=== PATIENT | male | born 1975 | race Caucasian/White ===

== ENCOUNTER 2016-10-06 15:08 | Inpatient (IN) | payer OTHER ==
[2016-10-06 16:07] VITALS: BMI 22.4
--- NOTE | 2016-10-06 18:39 | HP ---
COWS - Scale Resting Pulse: 1= [place] 81-100 Sweatin= Chills/Flushing Restless Observation: 1= Difficult to Sit Still Pupil Size: 0= Normal to Room Light Bone or Joint Aches: 2= Severe Diffuse Aches Runny Nose/ Eye Tearin= Runny Nose/Eyes GI Upset > 30mins: 2= Nausea/Diarrhea Tremor Observation: 2= Slight Tremor Visible Yawning Observation: 1= 1-2x During Session Anxiety or Irritability: 2=Irritable/Anxious Goose Flesh Skin: 0=Smooth Skin COWS Score: 14 Admission [facility] - [facility] Chief Complaint: withdrawal sx Allergies/Adverse Reactions: Allergies Allergy/AdvReac Type Severity Reaction Status Date / Time No Known Allergies Allergy Verified 10/06/16 17:54 History of Present Illness: 41 years old male with long history of cocaine nicotine opiate dependence has hepatitis c treated, asthma, positive ppd and open heart surgery 05/2016 "valve replacement" and bipolar ii is admitted to detox Exam Limitations: No Limitations - Ebola screening Have you traveled outside of the country in the last 21 days: No Have you had contact with anyone from an Ebola affected area: No Have you been sick,other than usual withdrawal symptoms: No Do you have a fever: No - Review of Systems Constitutional: Loss of Appetite, Changes in sleep, Unintentional Wgt. Loss, Unexplained wgt Loss EENT: reports: Blurred Vision (reading eye glasses) Respiratory: reports: SOB with Exertion Cardiac: reports: No Symptoms Reported GI: reports: Nausea, Poor Appetite, Poor Fluid Intake, Abdominal cramping : reports: No Symptoms Reported Musculoskeletal: reports: Back Pain (x 10+ years) Integumentary: reports: Change in Color (both inner elbows) Neuro: reports: Tremors Endocrine: reports: No Symptoms Reported Hematology: reports: Blood Clots (had cardiac valve replacement 05/2016 unable to remember the name of the medication) Psychiatric: reports: Judgement Intact, Orientated x3, Anxious, Depressed Other Systems: Reviewed and Negative Patient History - Patient Medical History Hx Anemia: No Hx Asthma: Yes Hx Chronic Obstructive Pulmonary Disease (COPD): No Hx Cancer: No Hx Cardiac Disorders: Yes (05/2016 valve replacement) Hx Congestive Heart Failure: No Hx Hypertension: No Hx Hypercholesterolemia: No Hx Pacemaker: No HX Cerebrovascular Accident: No Hx Seizures: No Hx Dementia: No Hx Diabetes: No Hx Gastrointestinal Disorders: No Hx Liver Disease: No Hx Genitourinary Disorders: No Hx Sexually Transmitted Disorders: No Hx Renal Disease (ESRD): No Hx Thyroid Disease: No Hx Human Immunodeficiency Virus (HIV): No Hx Hepatitis C: Yes Hx Depression: No Hx Suicide Attempt: No Hx Bipolar Disorder: Yes Hx Schizophrenia: No - Patient Surgical History Past Surgical History: Yes Hx Neurologic Surgery: No Hx Cataract Extraction: No Hx Cardiac Surgery: Yes (04/2016) Hx Lung Surgery: No Hx Breast Surgery: No Hx Breast Biopsy: No Hx Abdominal Surgery: No Hx Appendectomy: No Hx Cholecystectomy: No Hx Genitourinary Surgery: No Hx Orthopedic Surgery: No Anesthesia Reaction: No - PPD History Previous Implant?: No Documented Results: Positive w/o proof Implanted On Prior R Admission?: No PPD to be Administered?: No - Smoking Cessation Smoking history: Current every day smoker Have you smoked in the past 12 months: No Aproximately how many cigarettes per day: 10 Hx Chewing Tobacco Use: No Initiated information on smoking cessation: Yes 'Breaking Loose' booklet given: 10/06/16 - Substance & Tx. History Hx Substance Use: No Substance Use Type: Cocaine, Opiates Hx Substance Use Treatment: Yes (2015) - Substances Abused Heroin Route: Injection Frequency: Daily Amount used: 4 bags Age of first use: 16 Date of Last Use: 10/06/16 Cocaine Route: Injection Frequency: Daily Amount used: 4 bags Age of first use: 16 Date of Last Use: 10/06/16 Family Disease History - Family Disease History Family Disease History: Diabetes: Sister, [place]: Father, Other: Father, Mother ( /kidney) Admission Physical Exam S - Vital Signs Vital Signs: Vital Signs - 24 hr 10/06/16 16:06 Temperature 96.3 F L Pulse Rate 93 H Respiratory 20 Rate Blood Pressure 87/59 - Physical General Appearance: Yes: Appropriately Dressed, Mild Distress, Thin, Tremorous, Irritable, Sweating, Anxious HEENTM: Yes: Hearing grossly Normal, Normal ENT Inspection, Normocephalic, Normal Voice Respiratory: Yes: Chest Non-Tender, No Respiratory Distress, No Accessory Muscle Use Neck: Yes: Supple, Trachea in good position Breast: Yes: Breasts Symetrical Cardiology: Yes: Regular Rhythm, S1, S2, Tachycardia Abdominal: Yes: Non Tender, Soft, Increased Bowel Sounds Genitourinary: Yes: Within Normal Limits Back: Yes: Normal Inspection Musculoskeletal: Yes: full range of Motion, Gait Steady, Back pain, Joint swelling (feet) Extremities: Yes: Normal Range of Motion (f), Non-Tender, Tremors Neurological: Yes: Fully Oriented, Alert, Motor Strength 5/5, Normal Response, Depressed Affect Integumentary: Yes: Warm, Track [place] Lymphatic: Yes: Within Normal Limits - Diagnostic (1) Opioid dependence with withdrawal Current Visit: Yes Status: Acute (2) Cocaine dependence, uncomplicated Current Visit: Yes Status: Chronic (3) Nicotine dependence Current Visit: Yes Status: Acute Qualifiers: Nicotine product type: cigarettes Substance use status: in withdrawal Qualified Code(s): F17.213 - Nicotine dependence, cigarettes, with withdrawal (4) Asthma Current Visit: Yes Status: Chronic Qualifiers: Asthma severity: mild persistent (5) Positive PPD, treated Current Visit: Yes Status: Resolved (6) Hepatitis C Current Visit: Yes Status: Resolved Qualifiers: Viral hepatitis chronicity: carrier Qualified Code(s): B18.2 - Chronic viral hepatitis C (7) Swollen feet Current Visit: Yes Status: Chronic Comment: elevation of feet (8) Weight loss Current Visit: Yes Status: Acute (9) Heart valve replaced Current Visit: Yes Status: Resolved Comment: wait for primary pharmacy e sent list of medications (10) Bipolar II disorder Current Visit: Yes Status: Suspected Cleared for Admission [facility] - Detox or Rehab [facility] Level of Care: Medically Managed Detox Regimen/Protocol: Methadone [facility] Breath Alcohol Content Breath Alcohol Content: 0 Urine Drug Screen - Results Drug Screen Negative: No Urine Drug Screen Results: ANNO-Cocaine, OPI-Opiates
[2016-10-06] MEDS ORDERED: diphenhydrAMINE HCL 50 MG CAPSULE PO PRN (18:50)
[2016-10-06] MEDS ORDERED: NICOTINE POLACRILEX 2 MG GUM BC PRN (18:50)
[2016-10-06] MEDS ORDERED: MAGNESIUM CITRATE 300 ML BOTTLE PO PRN (18:50)
[2016-10-06] MEDS ORDERED: LOPERAMIDE HCL 2 MG CAPSULE PO PRN (18:50)
[2016-10-06] MEDS ORDERED: P-EPHED 60MG/TRIPROLIDI 2.5MG TABLET PO PRN (18:50)
[2016-10-06] MEDS ORDERED: guaiFENesin/D-METHORPHAN HB 10 ML UNIT-DOSE CUPS PO PRN (18:50)
[2016-10-06] MEDS ORDERED: MENTHOL/PHENOL 1 EACH UD MM PRN (18:50)
[2016-10-06] MEDS ORDERED: MAGNESIUM HYDROX 2400MG/30ML ORAL SUSPENSION 30 ML CUP PO PRN (18:50)
[2016-10-06] MEDS ORDERED: METHADONE HCL 10 MG TABLET (FOR DETOX USE ONLY) PO ONE ×2 (18:50→23:00)
[2016-10-06] MEDS ORDERED: MAG HYDROX/AL HYDROX/SIMETH 30 ML UNIT-DOSE CUP PO PRN (18:50)
[2016-10-06] MEDS ORDERED: ALBUTEROL SO4 2.5/IPRATROPIUM 0.5 INH SOL 3 ML VIAL.NEB. NEB PRN (18:54)
[2016-10-06] MEDS ORDERED: ALBUTEROL SO4 6.7 GM HFA INHALER IH PRN (18:54)
[2016-10-06] MEDS: diazePAM 5 MG TABLET PO PRN (20:05)
[2016-10-06] MEDS: ACETAMINOPHEN 325 MG TABLET (FP) PO PRN (20:11)
[2016-10-06 20:59] LABS: URINE APPEARANCE CLEAR; URINE BILIRUBIN NEGATIVE (NEGATIVE); URINE BLOOD 1+ (NEGATIVE); URINE COLOR YELLOW; URINE GLUCOSE (UA) NEGATIVE (NEGATIVE); URINE KETONE NEGATIVE (NEGATIVE); URINE LEUK ESTERASE NEGATIVE (NEGATIVE); URINE NITRITE NEGATIVE (NEGATIVE); URINE PROTEIN NEGATIVE (NEGATIVE); URINE UROBILINOGEN 4.0 E.U/dl mg/dL (0.2-1.0)
[2016-10-06 21:20] LABS: URINE RBC 5 /hpf (0-3); URINE WBC 5 /hpf (3-5)
[2016-10-06] MEDS: THIAMINE HCL 100 MG TABLET (FP) PO SCH (22:32)
[2016-10-06] MEDS: LIDOCAINE PATCH REMOVAL MC SCH (22:32)
[2016-10-07] MEDS ORDERED: METHADONE HCL 10 MG TABLET (FOR DETOX USE ONLY) PO ONE (10:00)
[2016-10-07 10:13] LABS: MCH 22.9 pg (25.7-33.7); MCHC 31.6 g/dl (32.0-35.9); MEAN CELL VOLUME 72.5 fl (80-96); MEAN PLT VOLUME 9.6 fl (7.5-11.1); PLATELET COUNT 49 K/MM3 (134-434); RDW 18.6 % (11.9-15.9); WHITE BLOOD COUNT 10.6 K/mm3 (4.0-10.0)
[2016-10-07 10:21] LABS: INR 1.43 (0.82-1.09); PROTHROMBIN TIME (PATIENT) 15.9 SEC (9.98-11.88)
[2016-10-07] MEDS: PRENATAL VITAMINS W/ FOLIC ACID TABLET (FP) PO SCH (10:48)
[2016-10-07] MEDS: LIDOCAINE 5% TOPICAL PATCH TP SCH (10:49)
[2016-10-07] MEDS: NICOTINE 14 MG/24 HOURS TOPICAL PATCH TD SCH (10:49)
[2016-10-07 10:53] LABS: ALBUMIN 2.1 g/dl (3.4-5.0); ALK PHOS 156 U/L (45-117); ANION GAP 8 (8-16); BILIRUBIN,TOTAL 0.8 mg/dL (0.2-1.0); CO2 27 mmol/L (21-32); CREATININE 0.8 mg/dL (0.7-1.3); GLUCOSE,RANDOM 84 mg/dL (74-106); SGOT/AST 19 U/L (15-37); SGPT/ALT 14 U/L (12-78); TOT PROT 7.1 g/dl (6.4-8.2)
--- NOTE | 2016-10-07 10:53 | PN ---
S COWS - Scale Resting Pulse: 1= [place] 81-100 Sweatin= Chills/Flushing Restless Observation: 1= Difficult to Sit Still Pupil Size: 1= Pupils >than Normal Bone or Joint Aches: 1= Mild Discomfort Runny Nose/ Eye Tearin= Nasal Congestion GI Upset > 30mins: 2= Nausea/Diarrhea Tremor Observation of Outstretched Hands: 1= Tremor [place], Not Seen Yawning Observation: 1= 1-2x During Session Anxiety or Irritability: 2=Irritable/Anxious Goose Flesh Skin: 3=Piloerection COWS Score: 15 S Progress Note (SOAP) Subjective: nausea, sweats, interrupted sleep, anxiety, tremors Objective: 10/07/16 10:53 Vital Signs - 24 hr 10/06/16 10/06/16 10/07/16 16:06 22:21 00:34 Temperature 96.3 F L 97.6 F Pulse Rate 93 H 90 Respiratory 20 18 18 Rate Blood Pressure 87/59 107/78 10/07/16 10/07/16 10/07/16 03:26 06:34 10:06 Temperature 98.6 F Pulse Rate 86 Respiratory 18 18 18 Rate Blood Pressure 113/81 Laboratory Tests 10/06/16 10/07/16 10/07/16 20:47 07:00 07:00 WBC 10.6 H RBC 4.69 Hgb 10.7 L Hct 34.0 L MCV 72.5 L MCH 22.9 L MCHC 31.6 L RDW 18.6 H Plt Count 49 L MPV 9.6 Sodium 140 Potassium 3.9 Chloride 105 Urine Color Yellow Urine Appearance Clear Urine pH 6.0 Ur Specific [place] 1.025 Urine Protein Negative Urine Glucose (UA) Negative Urine Ketones Negative Urine Blood 1+ H Urine Nitrite Negative Urine Bilirubin Negative Urine Urobilinogen 4.0 e.u/dl Ur Leukocyte Esterase Negative Urine RBC 5 Urine WBC 5 Ur Epithelial Cells Rare Assessment: 10/07/16 10:53 withdrawal sx, anemia, abnormal u/a Plan: cont detox, repeat u/a, iron supplements
--- NOTE | 2016-10-07 11:48 | CONSULT ---
[facility] Psychiatric Consult - Data Date of interview: 10/07/16 Admission source: [facility] Identifying data: First admission to [facility] for this 41 y/o male seeking detox treatment for heroin and cocaine dependence.Patient is single,a father of two,domiciled,unemployed and supported on SSI benefits. Substance Abuse History: Confirmed by patient. Smoking Cessation. Smoking history: Current every day smoker. Have you smoked in the past 12 months: No. Aproximately how many cigarettes per day: 10. Hx Chewing Tobacco Use: No. Initiated information on smoking cessation: Yes. 'Breaking Loose' booklet given : 10/06/16. - Substance & Tx. History. Hx Substance Use: No. Substance Use Type: Cocaine, Opiates. Hx Substance Use Treatment: Yes (2015). - Substances Abused. Heroin. Route: Injection. Frequency: Daily. Amount used: 4 bags. Age of first use: 16. Date of Last Use: 10/06/16. Cocaine. Route: Injection. Frequency: Daily. Amount used: 4 bags. Age of first use: 16. Date of Last Use: 10/06/16 Medical History: Hepatitis C,history of positive PPD and bronchial asthma.Noted history of recent open heart surgery for valve replacement (May 2016). Psychiatric History: Patient is a diificult historian to follow due to disorganization and inconsistencies.Mr Stroud denies history of psychiatric hospitalizations.Admits to an antecedent of OPD care at [facility] in the [place].Used to see Dr Demarco for management of anxiety.Dropped out of follow up eight months ago.Now purchases xanax from street vendors.No reported history of suicide attempts. Physical/Sexual Abuse/Trauma History: No information. Additional Comment: Urine Drug Screen Results: NANO-Cocaine, OPI-Opiates.Noted. Mental Status Exam - Mental Status Exam Alert and Oriented to: Place, Person Cognitive Function: Impaired Patient Appearance: Unkempt, Disheveled Mood: Withdrawn, Anxious Affect: Mood Congruent Patient Behavior: Sedated (moderately), Fatigued, Cooperative Speech Pattern: Delayed, Slurred Voice Loudness: Normal Thought Process: Disorganized Thought Disorder: Not Present Hallucinations: Denies Suicidal Ideation: Denies Homicidal Ideation: Denies Insight/Judgement: Poor Sleep: Well Appetite: Good Muscle strength/Tone: Normal Gait/Station: Normal Psychiatric Findings - Problem List ([place] 1, 2,3) (1) Opioid dependence with withdrawal Current Visit: Yes Status: Acute (2) Cocaine dependence, uncomplicated Current Visit: Yes Status: Acute (3) Nicotine dependence Current Visit: Yes Status: Acute Qualifiers: Nicotine product type: cigarettes Substance use status: in withdrawal Qualified Code(s): F17.213 - Nicotine dependence, cigarettes, with withdrawal (4) Substance induced mood disorder Current Visit: Yes Status: Acute (5) Asthma Current Visit: Yes Status: Chronic Qualifiers: Asthma severity: mild persistent (6) Heart valve replaced Current Visit: Yes Status: Resolved Comment: wait for primary pharmacy e sent list of medications (7) Hepatitis C Current Visit: Yes Status: Resolved Qualifiers: Viral hepatitis chronicity: carrier Qualified Code(s): B18.2 - Chronic viral hepatitis C (8) Positive PPD, treated Current Visit: Yes Status: Resolved - Initial Treatment Plan Initial Treatment Plan: Psychoeducation.Detoxification.Observation.
[2016-10-07] MEDS: diazePAM 5 MG TABLET PO PRN ×2 (12:50→20:23)
[2016-10-07] MEDS: FERROUS SO4 325 MG TABLET (FP) PO SCH ×2 (12:50→17:28)
[2016-10-07] MEDS: ACETAMINOPHEN 325 MG TABLET (FP) PO PRN (20:21)
[2016-10-07] MEDS: THIAMINE HCL 100 MG TABLET (FP) PO SCH (22:48)
[2016-10-07] MEDS: LIDOCAINE PATCH REMOVAL MC SCH (22:49)
[2016-10-08] MEDS ORDERED: ONDANSETRON 8 MG TABLET (FP) PO PRN (00:13)
[2016-10-08] MEDS ORDERED: ONDANSETRON *ODT* 4 MG TABLET SL PRN (00:32)
[2016-10-08] MEDS: FERROUS SO4 325 MG TABLET (FP) PO SCH ×3 (07:58→17:08)
[2016-10-08] MEDS: diazePAM 5 MG TABLET PO PRN ×3 (07:58→22:33)
[2016-10-08] MEDS ORDERED: METHADONE HCL 5 MG TABLET (FOR DETOX USE ONLY) PO ONE (10:00)
[2016-10-08] MEDS: PRENATAL VITAMINS W/ FOLIC ACID TABLET (FP) PO SCH (11:03)
[2016-10-08] MEDS: LIDOCAINE 5% TOPICAL PATCH TP SCH (11:03)
[2016-10-08] MEDS: NICOTINE 14 MG/24 HOURS TOPICAL PATCH TD SCH (11:04)
--- NOTE | 2016-10-08 13:08 | PN ---
[facility] COWS - Scale Resting Pulse: 2= [place] 101-120 Sweatin= Chills/Flushing Restless Observation: 1= Difficult to Sit Still Pupil Size: 0= Normal to Room Light Bone or Joint Aches: 0= None Runny Nose/ Eye Tearin= Runny Nose/Eyes GI Upset > 30mins: 3= Vomiting/Diarrhea Tremor Observation of Outstretched Hands: 2= Slight Tremor Visible Yawning Observation: 1= 1-2x During Session Anxiety or Irritability: 2=Irritable/Anxious Goose Flesh Skin: 0=Smooth Skin COWS Score: 14 S Progress Note (SOAP) Subjective: Vomiting, Tremors, Fatigue, Interrupted sleep. Objective: PT. A & O X 1 (DISORIENTED ABOUT DAY/DATE AND ABOUT CURRENT LOCATION). NO ACUTE DISTRESS. 10/08/16 13:06 Vital Signs Temperature 102.2 F H 10/07/16 21:59 Pulse Rate 112 H 10/07/16 21:59 Respiratory Rate 16 10/08/16 06:30 Blood Pressure 93/66 10/07/16 21:59 O2 Sat by Pulse Oximetry (%) Laboratory Tests 10/06/16 10/07/16 10/07/16 20:47 07:00 07:00 WBC 10.6 H RBC 4.69 Hgb 10.7 L Hct 34.0 L MCV 72.5 L MCH 22.9 L MCHC 31.6 L RDW 18.6 H Plt Count 49 L MPV 9.6 INR 1.43 H Sodium Potassium Chloride Carbon Dioxide Anion Gap BUN Creatinine Creat Clearance w eGFR Random Glucose Calcium Total Bilirubin AST ALT Alkaline Phosphatase Total Protein Albumin Urine Color Yellow Urine Appearance Clear Urine pH 6.0 Ur Specific [place] 1.025 Urine Protein Negative Urine Glucose (UA) Negative Urine Ketones Negative Urine Blood 1+ H Urine Nitrite Negative Urine Bilirubin Negative Urine Urobilinogen 4.0 e.u/dl Ur Leukocyte Esterase Negative Urine RBC 5 Urine WBC 5 Ur Epithelial Cells Rare RPR Titer 10/07/16 10/07/16 07:00 07:00 WBC RBC Hgb Hct MCV MCH MCHC RDW Plt Count MPV INR Sodium 140 Potassium 3.9 Chloride 105 Carbon Dioxide 27 Anion Gap 8 BUN 16 Creatinine 0.8 Creat Clearance w eGFR > 60 Random Glucose 84 Calcium 8.0 L Total Bilirubin 0.8 AST 19 ALT 14 Alkaline Phosphatase 156 H Total Protein 7.1 Albumin 2.1 L Urine Color Urine Appearance Urine pH Ur Specific [place] Urine Protein Urine Glucose (UA) Urine Ketones Urine Blood Urine Nitrite Urine Bilirubin Urine Urobilinogen Ur Leukocyte Esterase Urine RBC Urine WBC Ur Epithelial Cells RPR Titer Nonreactive LABS NOTED. Assessment: 10/08/16 13:07 WITHDRAWAL SYMPTOMS. Plan: CONTINUE DETOX. PRN ZOFRAN SL FOR NAUSEA / VOMITING. NEW MEDS. ORDERED BASED ON INFORMATION PROVIDED FROM PATIENT'S HOME PHARMACY ( [facility], [place] ): CLOPIDOGREL, 75 MG PO DAILY, ASA, 81 MG PO DAILY, SENNA 1 TAB PO BID, COLACE 100 MG PO BID. REPEAT UA FOR ABNORMAL ADMISSION VALUES.
[2016-10-08] MEDS: CLOPIDOGREL BISULFATE 75 MG TABLET (FP) PO SCH (17:08)
[2016-10-08] MEDS: ASPIRIN 81 MG CHEWABLE TABLETS PO SCH (17:08)
[2016-10-08] MEDS: ACETAMINOPHEN 325 MG TABLET (FP) PO PRN (22:32)
[2016-10-08] MEDS: SENNOSIDES 8.6MG TABLET (FP) PO SCH (22:33)
[2016-10-08] MEDS: DOCUSATE SODIUM 100 MG CAPSULE (FP) PO SCH (22:33)
[2016-10-08] MEDS: LIDOCAINE PATCH REMOVAL MC SCH (22:34)
[2016-10-08] MEDS: THIAMINE HCL 100 MG TABLET (FP) PO SCH (22:34)
[2016-10-09] MEDS ORDERED: CLINDAMYCIN HCL 300 MG CAPSULE PO SCH
[2016-10-09] MEDS: CLINDAMYCIN HCL 150 MG CAPSULE (FP) PO SCH ×4 (07:59→23:01)
[2016-10-09] MEDS: FERROUS SO4 325 MG TABLET (FP) PO SCH ×3 (07:59→19:18)
[2016-10-09] MEDS ORDERED: METHADONE HCL 5 MG TABLET (FOR DETOX USE ONLY) PO ONE (10:00)
[2016-10-09] MEDS: ASPIRIN 81 MG CHEWABLE TABLETS PO SCH (11:00)
[2016-10-09] MEDS: SENNOSIDES 8.6MG TABLET (FP) PO SCH ×2 (11:00→22:37)
[2016-10-09] MEDS: DOCUSATE SODIUM 100 MG CAPSULE (FP) PO SCH ×2 (11:00→22:38)
[2016-10-09] MEDS: CLOPIDOGREL BISULFATE 75 MG TABLET (FP) PO SCH (11:00)
[2016-10-09] MEDS: LIDOCAINE 5% TOPICAL PATCH TP SCH (11:00)
[2016-10-09] MEDS: NICOTINE 14 MG/24 HOURS TOPICAL PATCH TD SCH (11:01)
[2016-10-09] MEDS: PRENATAL VITAMINS W/ FOLIC ACID TABLET (FP) PO SCH (11:01)
[2016-10-09] MEDS: diazePAM 5 MG TABLET PO PRN (11:02)
--- NOTE | 2016-10-09 11:38 | EKG ---
Test Reason : Blood Pressure : / mmHG Vent. Rate : 083 BPM Atrial Rate : 083 BPM P-R Int : 136 ms QRS Dur : 066 ms QT Int : 400 ms P-R-T Axes : 070 064 035 degrees QTc Int : 470 ms NORMAL SINUS RHYTHM NORMAL ECG NO PREVIOUS ECGS AVAILABLE Confirmed by NIKOLAS MONTAGUE MD ([id number]) on 10/09/2016 11:37:54 AM Referred By: Dimas Huerta Confirmed By:NIKOLAS MONTAGUE MD
--- NOTE | 2016-10-09 11:46 | PN ---
[facility] Progress Note (SOAP) Subjective: Anxious, Fatigue, Vomiting. Objective: PT. A & O X 2 (DISORIENTED ABOUT DAY / DATE). PT. OBSERVED AMBULATING ON UNIT. NO ACUTE DISTRESS. PT. DENIES CHEST PAIN. 10/09/16 11:43 Vital Signs Temperature 97.3 F L 10/09/16 09:42 Pulse Rate 88 10/09/16 09:42 Respiratory Rate 18 10/09/16 09:42 Blood Pressure 128/93 10/09/16 09:42 O2 Sat by Pulse Oximetry (%) Laboratory Tests 10/06/16 10/07/16 10/07/16 20:47 07:00 07:00 WBC 10.6 H RBC 4.69 Hgb 10.7 L Hct 34.0 L MCV 72.5 L MCH 22.9 L MCHC 31.6 L RDW 18.6 H Plt Count 49 L MPV 9.6 INR 1.43 H Sodium Potassium Chloride Carbon Dioxide Anion Gap BUN Creatinine Creat Clearance w eGFR Random Glucose Calcium Total Bilirubin AST ALT Alkaline Phosphatase Total Protein Albumin Urine Color Yellow Urine Appearance Clear Urine pH 6.0 Ur Specific [place] 1.025 Urine Protein Negative Urine Glucose (UA) Negative Urine Ketones Negative Urine Blood 1+ H Urine Nitrite Negative Urine Bilirubin Negative Urine Urobilinogen 4.0 e.u/dl Ur Leukocyte Esterase Negative Urine RBC 5 Urine WBC 5 Ur Epithelial Cells Rare RPR Titer 10/07/16 10/07/16 07:00 07:00 WBC RBC Hgb Hct MCV MCH MCHC RDW Plt Count MPV INR Sodium 140 Potassium 3.9 Chloride 105 Carbon Dioxide 27 Anion Gap 8 BUN 16 Creatinine 0.8 Creat Clearance w eGFR > 60 Random Glucose 84 Calcium 8.0 L Total Bilirubin 0.8 AST 19 ALT 14 Alkaline Phosphatase 156 H Total Protein 7.1 Albumin 2.1 L Urine Color Urine Appearance Urine pH Ur Specific [place] Urine Protein Urine Glucose (UA) Urine Ketones Urine Blood Urine Nitrite Urine Bilirubin Urine Urobilinogen Ur Leukocyte Esterase Urine RBC Urine WBC Ur Epithelial Cells RPR Titer Nonreactive LABS NOTED. Assessment: 10/09/16 11:44 WITHDRAWAL SYMPTOMS. Plan: CONTINUE DETOX. REPEAT UA AND CBC FOR ABNORMAL ADMISSION VALUES.
[2016-10-09 16:11] LABS: URINE APPEARANCE CLEAR; URINE BILIRUBIN NEGATIVE (NEGATIVE); URINE BLOOD NEGATIVE (NEGATIVE); URINE COLOR AMBER; URINE GLUCOSE (UA) NEGATIVE (NEGATIVE); URINE KETONE NEGATIVE (NEGATIVE); URINE LEUK ESTERASE NEGATIVE (NEGATIVE); URINE NITRITE NEGATIVE (NEGATIVE); URINE PROTEIN NEGATIVE (NEGATIVE); URINE UROBILINOGEN 4.0 E.U/dl mg/dL (0.2-1.0)
[2016-10-09] MEDS: THIAMINE HCL 100 MG TABLET (FP) PO SCH (22:37)
[2016-10-09] MEDS: LIDOCAINE PATCH REMOVAL MC SCH (22:38)
[2016-10-10] MEDS: CLINDAMYCIN HCL 150 MG CAPSULE (FP) PO SCH ×4 (06:01→23:32)
[2016-10-10] MEDS: FERROUS SO4 325 MG TABLET (FP) PO SCH ×3 (07:34→18:02)
[2016-10-10] MEDS ORDERED: METHADONE HCL 10 MG TABLET (FOR DETOX USE ONLY) PO ONE (10:00)
[2016-10-10] MEDS ORDERED: ONDANSETRON *ODT* 4 MG TABLET SL PRN (10:12)
[2016-10-10 10:23] LABS: BASOPHIL 0.6 % (0-2.0); EOSINOPHIL 0.2 % (0-4.5); MCH 22.5 pg (25.7-33.7); MCHC 30.6 g/dl (32.0-35.9); MEAN CELL VOLUME 73.5 fl (80-96); MEAN PLT VOLUME 9.7 fl (7.5-11.1); NEUTROPHILS 82.1 % (42.8-82.8); PLATELET COUNT 68 K/MM3 (134-434); RDW 19.5 % (11.9-15.9); WHITE BLOOD COUNT 13.7 K/mm3 (4.0-10.0)
[2016-10-10] MEDS ORDERED: ONDANSETRON *ODT* 4 MG TABLET SL ONE (10:30)
[2016-10-10] MEDS: CLOPIDOGREL BISULFATE 75 MG TABLET (FP) PO SCH (10:41)
[2016-10-10] MEDS: DOCUSATE SODIUM 100 MG CAPSULE (FP) PO SCH (10:41)
[2016-10-10] MEDS: PRENATAL VITAMINS W/ FOLIC ACID TABLET (FP) PO SCH (10:42)
[2016-10-10] MEDS: SENNOSIDES 8.6MG TABLET (FP) PO SCH ×2 (10:42→22:48)
[2016-10-10] MEDS: ASPIRIN 81 MG CHEWABLE TABLETS PO SCH (10:42)
[2016-10-10] MEDS: LIDOCAINE 5% TOPICAL PATCH TP SCH (10:42)
[2016-10-10] MEDS: NICOTINE 14 MG/24 HOURS TOPICAL PATCH TD SCH (10:43)
--- NOTE | 2016-10-10 11:11 | PN ---
BHS Progress Note (SOAP) Subjective: nausea, sweats, interrupted sleep, anxiety, tremors Objective: 10/10/16 11:10 Vital Signs - 8 hr 10/10/16 10/10/16 10/10/16 06:36 07:41 09:42 Temperature 97.7 F 98.6 F Pulse Rate 110 H 93 H 90 Respiratory 16 18 Rate Blood Pressure 86/56 81/52 128/93 Laboratory Tests 10/06/16 10/07/16 10/07/16 20:47 07:00 07:00 WBC 10.6 H RBC 4.69 Hgb 10.7 L Hct 34.0 L MCV 72.5 L MCH 22.9 L MCHC 31.6 L RDW 18.6 H Plt Count 49 L MPV 9.6 Neutrophils % Lymphocytes % Monocytes % Eosinophils % Basophils % INR 1.43 H Sodium Potassium Chloride Carbon Dioxide Anion Gap BUN Creatinine Creat Clearance w eGFR Random Glucose Calcium Total Bilirubin AST ALT Alkaline Phosphatase Total Protein Albumin Urine Color Yellow Urine Appearance Clear Urine pH 6.0 Ur Specific [place] 1.025 Urine Protein Negative Urine Glucose (UA) Negative Urine Ketones Negative Urine Blood 1+ H Urine Nitrite Negative Urine Bilirubin Negative Urine Urobilinogen 4.0 e.u/dl Ur Leukocyte Esterase Negative Urine RBC 5 Urine WBC 5 Ur Epithelial Cells Rare RPR Titer 10/07/16 10/07/16 10/09/16 07:00 07:00 12:00 WBC RBC Hgb Hct MCV MCH MCHC RDW Plt Count MPV Neutrophils % Lymphocytes % Monocytes % Eosinophils % Basophils % INR Sodium 140 Potassium 3.9 Chloride 105 Carbon Dioxide 27 Anion Gap 8 BUN 16 Creatinine 0.8 Creat Clearance w eGFR > 60 Random Glucose 84 Calcium 8.0 L Total Bilirubin 0.8 AST 19 ALT 14 Alkaline Phosphatase 156 H Total Protein 7.1 Albumin 2.1 L Urine Color [place] Urine Appearance Clear Urine pH 7.0 Ur Specific [place] 1.015 Urine Protein Negative Urine Glucose (UA) Negative Urine Ketones Negative Urine Blood Negative Urine Nitrite Negative Urine Bilirubin Negative Urine Urobilinogen 4.0 e.u/dl Ur Leukocyte Esterase Negative Urine RBC Urine WBC Ur Epithelial Cells RPR Titer Nonreactive 10/10/16 07:00 WBC 13.7 H RBC 4.53 Hgb 10.2 L Hct 33.3 L MCV 73.5 L MCH 22.5 L MCHC 30.6 L RDW 19.5 H Plt Count 68 L D MPV 9.7 Neutrophils % 82.1 Lymphocytes % 11.7 Monocytes % 5.4 Eosinophils % 0.2 Basophils % 0.6 INR Sodium Potassium Chloride Carbon Dioxide Anion Gap BUN Creatinine Creat Clearance w eGFR Random Glucose Calcium Total Bilirubin AST ALT Alkaline Phosphatase Total Protein Albumin Urine Color Urine Appearance Urine pH Ur Specific [place] Urine Protein Urine Glucose (UA) Urine Ketones Urine Blood Urine Nitrite Urine Bilirubin Urine Urobilinogen Ur Leukocyte Esterase Urine RBC Urine WBC Ur Epithelial Cells RPR Titer Assessment: 10/10/16 11:11 naga sx, anemia Plan: cont detox, ensuer , ferrous sulphate
[2016-10-10] MEDS: ACETAMINOPHEN 325 MG TABLET (FP) PO PRN (14:20)
[2016-10-10] MEDS ORDERED: DOCUSATE SODIUM 100 MG CAPSULE (FP) PO SCH (22:00)
[2016-10-10] MEDS: THIAMINE HCL 100 MG TABLET (FP) PO SCH (22:47)
[2016-10-10] MEDS: LIDOCAINE PATCH REMOVAL MC SCH (22:54)
[2016-10-11] MEDS: CLINDAMYCIN HCL 150 MG CAPSULE (FP) PO SCH (05:56)
[2016-10-11] MEDS ORDERED: METHADONE HCL 5 MG TABLET (FOR DETOX USE ONLY) PO ONE (06:00)
[2016-10-11 06:36] VITALS: BP 100/69; PULSE 113; TEMP 101.7
[2016-10-11] MEDS: ACETAMINOPHEN 325 MG TABLET (FP) PO PRN (07:33)
[2016-10-11] MEDS: FERROUS SO4 325 MG TABLET (FP) PO SCH (07:33)
[2016-10-11] MEDS: SENNOSIDES 8.6MG TABLET (FP) PO SCH (09:28)
[2016-10-11] MEDS: PRENATAL VITAMINS W/ FOLIC ACID TABLET (FP) PO SCH (09:28)
[2016-10-11] MEDS: ASPIRIN 81 MG CHEWABLE TABLETS PO SCH (09:28)
[2016-10-11] MEDS: CLOPIDOGREL BISULFATE 75 MG TABLET (FP) PO SCH (09:29)
[2016-10-11] MEDS: LIDOCAINE 5% TOPICAL PATCH TP SCH (10:48)
[2016-10-11] MEDS: NICOTINE 14 MG/24 HOURS TOPICAL PATCH TD SCH (10:48)
--- NOTE | 2016-10-11 15:54 | DS ---
[facility] Detox Discharge Summary Admission Date: 10/06/16 Discharge Date: 10/11/16 - History Present History: Cocaine Dependence, Opioid Dependence Additional Comments: PATIENT HAS COMPLETED FULL DETOX MEDICATION REGIMEN. HOWEVER, DUE TO RESULTS OF CXR DONE 10/09/2016, PATIENT'S CURRENT SYMPTOMATOLOGY, CURRENT VS (INCLUDING ELEVATED TEMP.), AND RESULTS OF LABS DRAWN WHILE PATIENT ADMITTED FOR DETOX, PATIENT STRONGLY ADVISED TO GO TO [facility] [place] FOR FURTHER EVALUATION AT TIME OF DISCHARGE FROM DETOX. HOWEVER, PATIENT DECLINES TO DO SO, STATING INSTEAD THAT HE PREFERS TO GO TO MEDICAL DEPARTMENT AT [facility] ([place], [place] WHERE HE HAD A HEART VALVE REPLACED IN 2013. PATIENT REPORTS TAHT HE DOES HAVE A MEDICAL PROVIDER IN THAT HOSPITAL, ALTHOUGH HE CANNOT RECALL THAT MEDICAL PROVIDER'S NAME AT THIS TIME. PATIENT ADVISED TO FOLLOW-UP WITH THAT MEDICAL PROVIDER SOON POSSIBLE AFTER DISCHARGE FROM DETOX FOR FURTHER EVALUATION. COPIES OF CXR RESULTS AND OF ALL LABS DRAWN WHILE ADMITTED FOR DETOX GIVEN TO PATIENT AT TIME OF DISCHARGE. LUNG SOUNDS AUSCULTATED CLEAR AND EQUAL BILATERALLY. VS: BP: 102/74; P: 150 BPM; T: 101.2; RR: 18; O2: 98%. PRESCRIPTION FOR 10-DAY COURSE OF ANTIBIOTIC THAT PATIENT WAS STARTED ON WHILE ADMITTED FOR DETOX (CLINDAMYCIN, 300 MG PO Q 6HRS) AND PRESCRIPTIONS FOR PLAVIX 75 MG PO DAILY, AND ASA, 81 MG PO DAILY SENT TO PATIENT 'S PHARMACY ([facility]). PATIENT STATES THAT HE WILL GO HOME AFTER DISCHARGE FROM DETOX. LOCAL OUTPATIENT 12-STEP / NA PROGRAMS RECOMMENDED FOR FOLLOW-UP AFTERCARE AFTER DISCHARGE FROM DETOX. Pertinent Past History: History of Heart Valve Replacement, Hep C, History of Positive PPD (Treated), Asthma, Bipolar disorder. - Physical Exam Results Vital Signs: Vital Signs Temperature 101.7 F H 10/11/16 06:35 Pulse Rate 113 H 10/11/16 06:35 Respiratory Rate 16 10/11/16 06:35 Blood Pressure 100/69 10/11/16 06:35 O2 Sat by Pulse Oximetry (%) Pertinent Admission Physical Exam Findings: WITHDRAWAL SYMPTOMS. Laboratory Tests 10/06/16 10/07/16 10/07/16 20:47 07:00 07:00 WBC 10.6 H RBC 4.69 Hgb 10.7 L Hct 34.0 L MCV 72.5 L MCH 22.9 L MCHC 31.6 L RDW 18.6 H Plt Count 49 L MPV 9.6 Neutrophils % Lymphocytes % Monocytes % Eosinophils % Basophils % INR 1.43 H Sodium Potassium Chloride Carbon Dioxide Anion Gap BUN Creatinine Creat Clearance w eGFR Random Glucose Calcium Total Bilirubin AST ALT Alkaline Phosphatase Total Protein Albumin Urine Color Yellow Urine Appearance Clear Urine pH 6.0 Ur Specific [place] 1.025 Urine Protein Negative Urine Glucose (UA) Negative Urine Ketones Negative Urine Blood 1+ H Urine Nitrite Negative Urine Bilirubin Negative Urine Urobilinogen 4.0 e.u/dl Ur Leukocyte Esterase Negative Urine RBC 5 Urine WBC 5 Ur Epithelial Cells Rare RPR Titer 10/07/16 10/07/16 10/09/16 07:00 07:00 12:00 WBC RBC Hgb Hct MCV MCH MCHC RDW Plt Count MPV Neutrophils % Lymphocytes % Monocytes % Eosinophils % Basophils % INR Sodium 140 Potassium 3.9 Chloride 105 Carbon Dioxide 27 Anion Gap 8 BUN 16 Creatinine 0.8 Creat Clearance w eGFR > 60 Random Glucose 84 Calcium 8.0 L Total Bilirubin 0.8 AST 19 ALT 14 Alkaline Phosphatase 156 H Total Protein 7.1 Albumin 2.1 L Urine Color [place] Urine Appearance Clear Urine pH 7.0 Ur Specific [place] 1.015 Urine Protein Negative Urine Glucose (UA) Negative Urine Ketones Negative Urine Blood Negative Urine Nitrite Negative Urine Bilirubin Negative Urine Urobilinogen 4.0 e.u/dl Ur Leukocyte Esterase Negative Urine RBC Urine WBC Ur Epithelial Cells RPR Titer Nonreactive 10/10/16 07:00 WBC 13.7 H RBC 4.53 Hgb 10.2 L Hct 33.3 L MCV 73.5 L MCH 22.5 L MCHC 30.6 L RDW 19.5 H Plt Count 68 L D MPV 9.7 Neutrophils % 82.1 Lymphocytes % 11.7 Monocytes % 5.4 Eosinophils % 0.2 Basophils % 0.6 INR Sodium Potassium Chloride Carbon Dioxide Anion Gap BUN Creatinine Creat Clearance w eGFR Random Glucose Calcium Total Bilirubin AST ALT Alkaline Phosphatase Total Protein Albumin Urine Color Urine Appearance Urine pH Ur Specific [place] Urine Protein Urine Glucose (UA) Urine Ketones Urine Blood Urine Nitrite Urine Bilirubin Urine Urobilinogen Ur Leukocyte Esterase Urine RBC Urine WBC Ur Epithelial Cells RPR Titer LABS NOTED. - Treatment Hospital Course: Detox Protocol Followed, Detoxed Safely, Responded well, Discharged Condition Good Patient has Accepted a Rehab Referral to: PT. GOING HOME; LOCAL 12-STEP/NA OUTPATIENT PROGRAMS RECOMMENDED. - Medication Discharge Medications: Ambulatory Orders Albuterol Sulfate Inhaler - [Ventolin Hfa Inhaler -] 1 - 2 inh PO QID #1 inhaler 10/11/16 Aspirin [ASA -] 81 mg PO DAILY #30 tab.chew 10/11/16 Clindamycin [Cleocin -] 300 mg PO Q6HPO #40 capsule 10/11/16 Clopidogrel Bisulfate [Clopidogrel] 75 mg PO DAILY #30 tablet 10/11/16 Ferrous Sulfate [Feosol] 325 mg PO BID #60 tablet 10/11/16 - Diagnosis (1) Cocaine dependence, uncomplicated Status: Acute (2) Nicotine dependence Status: Chronic Qualifiers: Nicotine product type: cigarettes Substance use status: in withdrawal Qualified Code(s): F17.213 - Nicotine dependence, cigarettes, with withdrawal (3) Opioid dependence with withdrawal Status: Acute (4) Substance induced mood disorder Status: Acute (5) Weight loss Status: Acute (6) Asthma Status: Chronic Qualifiers: Asthma severity: mild persistent Asthma complication type: uncomplicated Qualified Code(s): J45.30 - Mild persistent asthma, uncomplicated (7) Bipolar II disorder Status: Suspected (8) Swollen feet Status: Chronic - AMA Did Patient Leave Against Medical Advice: No
== END 2016-10-11 11:00 | disposition home or self-care (01) | DRG 773 ==
LOC: YASAS 15:08 → Y3N 19:18
PROVIDERS: ADMIT Internal Medicine Addiction Medicine; ATTEND Internal Medicine Addiction Medicine
PROC: HZ2ZZZZ Detoxification Services for Substance Abuse Treatment (ICD-10-PCS; principal; 2016-10-06)
DX: F11.23 Opioid dependence with withdrawal (principal); F14.20 Cocaine dependence, uncomplicated; F17.213 Nicotine dependence, cigarettes, with withdrawal; F19.24 Other psychoactive substance dependence with psychoactive substance-induced mood disorder; F31.81 Bipolar II disorder; B18.2 Chronic viral hepatitis C; J45.30 Mild persistent asthma, uncomplicated; R00.0 Tachycardia, unspecified; R76.11 Nonspecific reaction to tuberculin skin test without active tuberculosis; D64.9 Anemia, unspecified; R22.43 Localized swelling, mass and lump, lower limb, bilateral; R82.90 Unspecified abnormal findings in urine; Z95.2 Presence of prosthetic heart valve; Z87.898 Personal history of other specified conditions
CPT/HCPCS: 36415; 71020-TC; 80053; 81003; 81015; 85025; 85027; 85610; 86593; 93005; 93010; 94640